=== PATIENT | male | born 1975 ===

== ENCOUNTER 2018-07-30 12:34 | Outpatient (CLI) | payer OTHER ==
[~2018-07-30] VITALS: Ht 188 cm; Wt 81.6 kg
== END 2018-07-30 12:45 | disposition home or self-care (01) ==
LOC: OFIC 805 12:34
DX: H91.8X2 Other specified hearing loss, left ear (principal); H69.83 Other specified disorders of Eustachian tube, bilateral

== ENCOUNTER 2018-08-02 11:49 | Outpatient (CLI) | payer OTHER ==
[~2018-08-02] VITALS: Ht 182.9 cm; Wt 81.6 kg
== END 2018-08-02 12:10 | disposition home or self-care (01) ==
LOC: OFIC 805 11:49
DX: H69.90 Unspecified Eustachian tube disorder, unspecified ear (principal); R42 Dizziness and giddiness